=== PATIENT | male | born 1980 | race Caucasian/White ===

== ENCOUNTER 2016-11-13 02:12 | Emergency (ER) | payer OTHER ==
--- NOTE | 2016-11-13 02:30 | EMERGENCY ROOM VISIT NOTE ---
History Report prepared by Scribe: Gwen Desouza Under the Supervision of: Dr. Serena Campbell M.D. First contact with patient: 02:15 Chief Complaint: ALCOHOL OVERDOSE Stated Complaint: ALCOHOL OVERDOSE History of Present Illness The patient is a 36 year old male who presents to the Emergency Room via ambulance to be evaluated for alcohol intoxication this morning. Per nursing staff, the patient's friend called EMS this morning because he was supposedly not breathing. When EMS arrived, he was alert and walking and refused coming to the ER. About 30 minutes later he was found sleeping outside and vomiting and was brought to the ED. The patient admits to drinking alcohol but denies use of other substances. Denies any trauma or medical problems. History limited secondary to intoxication. Source of History: patient Onset: ASSISTANT DIRECTOR OF NURSING Position: other (global) Quality: other (alcohol intoxication) Timing: constant Associated Symptoms: + vomiting Review of Systems Limited secondary to intoxication. Past Medical & Surgical Medical Problems: (1) No Known Active Medical Problems Family History No pertinent family history stated. Social History Alcohol Use: occasionally Marital Status: Housing Status: lives with family Occupation Status: employed Current/Historical Medications Scheduled Ondasetron Odt (Zofran Odt), 4 MG SL Q6H Allergies Coded Allergies: No Known Allergies (Unverified , 11/13/16) Physical Exam Vital Signs Date Time Temp Pulse Resp B/P Pulse Ox O2 Delivery O2 Flow Rate FiO2 11/13/16 07:41 36.8 88 20 149/75 98 11/13/16 06:16 71 16 147/68 94 Nasal Cannula 2.0 11/13/16 06:16 98 Nasal Cannula 2.0 11/13/16 06:07 79 11/13/16 04:42 80 18 140/79 96 Room Air 11/13/16 02:42 35.9 95 Nasal Cannula 4.0 11/13/16 02:31 84 11/13/16 02:24 35.2 71 18 173/93 94 Room Air Physical Exam Vital signs reviewed. General: Odor of EtOH in the breath, disheveled 36-year-old male. No signs of trauma. HEENT: Mild scleral injection bilaterally, PERRLA, neck supple, dry mucous membranes. Cardiovascular: Regular rate and rhythm, no extra sounds. Pulmonary: Clear to auscultation bilaterally, normal work of breathing. Abdomen: Soft, nontender, nondistended, positive bowel sounds. Musculoskeletal: Upper and lower extremities atraumatic, no peripheral edema Skin: Warm, dry, no rash. Atraumatic. Neurologic: Patient is currently nonverbal. Medical Decision & Procedures Laboratory Results Test 11/13/16 02:34 Ethyl Alcohol mg/dL 263.0 mg/dl (0-3) Laboratory results per my review. ED Course 0221: The patient was evaluated in room A4. A complete history and physical examination was performed. 0705: Upon reevaluation, the patient appeared to have improvement of his symptoms. I discussed findings with the patient. He verbalized agreement of the treatment plan. The patient was discharged home. Medical Decision The differential diagnosis of the patient's presentation includes alcohol ingestion, illicit drug use, trauma, and dehydration. This patient was evaluated and appeared to be in no significant distress. The patient was intoxicated. He was observed on the court monitor with aspiration precautions maintained. Blood alcohol level is 263. When the patient became more sober, he was reevaluated. He was speaking clearly and answering questions. Patient was released to a cab. He was advised of the findings and will follow-up with his physician for any persistent symptoms. He will return to the ER for worsening of symptoms or any medical concerns. Impression Primary Impression: Alcohol intoxication Scribe Attestation The scribe's documentation has been prepared under my direction and personally reviewed by me in its entirety. I confirm that the note above accurately reflects all work, treatment, procedures, and medical decision making performed by me. Departure Information Dispostion Home / Self-Care Forms HOME CARE DOCUMENTATION FORM, IMPORTANT VISIT INFORMATION Patient Instructions [facility] Additional Instructions Diagnosis: Alcohol intoxication Drink plenty of clear liquids, such as water or Gatorade. Tylenol 650 mg every 6 hours as needed for pain. Avoid excessive alcohol consumption. Return to emergency for worsening of symptoms or medical concerns. Problem Qualifiers Primary Impression: Alcohol intoxication Complication of substance-induced condition: uncomplicated Qualified Codes: F10.120 - Alcohol abuse with intoxication, uncomplicated
[2016-11-13 06:16] VITALS: O2SAT 98
[2016-11-13 07:41] VITALS: BP 149/75; PULSE 88; TEMP 36.8; O2SAT 98
[2016-11-13] MEDS ORDERED: ONDA4TAB10 SL (15:09)
== END 2016-11-13 07:43 | disposition home or self-care (01) ==
LOC: C.EDA 02:15
DX: F10.129 Alcohol abuse with intoxication, unspecified (principal); Y90.8 Blood alcohol level of 240 mg/100 ml or more

== ENCOUNTER 2016-11-13 13:29 | Emergency (ER) | payer OTHER ==
[~2016-11-13] VITALS: Ht 180.3 cm; Wt 79.5 kg
[2016-11-13 13:41] VITALS: TEMP 36.3; Ht 180.3 cm; Wt 79.5 kg
[2016-11-13] MEDS ORDERED: ONDANSETRON 4MG OD TAB PO ONE (14:15)
[2016-11-13] MEDS ORDERED: ONDA4TAB10 SL (15:09)
[2016-11-13 15:15] VITALS: BP 154/80; PULSE 94; O2SAT 98
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
[2016-11-13 15:59] LABS: BENZODIAZEPINE, URINE NEG (NEG); COCAINE,URINE NEG (NEG); PHENCYCLIDINE, URINE NEG (NEG)
== END 2016-11-13 15:29 | disposition home or self-care (01) ==
LOC: C.EDB 13:30 → C.EDD 15:29
DX: E86.0 Dehydration (principal); R11.2 Nausea with vomiting, unspecified; F10.129 Alcohol abuse with intoxication, unspecified